=== PATIENT | male | born 2000 | race Hispanic/Latino ===

== ENCOUNTER 2022-01-30 10:37 | Emergency (ER) | payer OTHER ==
[~2022-01-30] VITALS: Ht 172.7 cm; Wt 94.0 kg
[2022-01-30 13:21] VITALS: BP 135/86
== END 2022-01-30 13:22 | disposition home or self-care (01) ==
LOC: M ED 10:37
DX: J02.9 Acute pharyngitis, unspecified (principal); J35.1 Hypertrophy of tonsils

== ENCOUNTER 2022-12-29 07:31 | Day surgery (SDC) | payer OTHER ==
[~2022-12-29] VITALS: Ht 172.7 cm; Wt 90.6 kg
[~2022-12-29 07:31] MED LIST: NS 1,000 ML IV ONE
[2022-12-29] MEDS ORDERED: LIDOCAINE 2% 100MG/5ML SDV (FOR ANES.) As Ordered ONE (08:30)
[2022-12-29] MEDS ORDERED: propofoL 200 MG/20 ML VIAL As Ordered ONE (08:30)
[2022-12-29 09:20] VITALS: TEMP 97.8
[2022-12-29 09:45] VITALS: BP 130/60; O2SAT 100
== END 2022-12-29 09:50 | disposition home or self-care (01) ==
LOC: M OPP 07:31
PROVIDERS: ATTEND Internal Medicine Gastroenterology
DX: K64.8 Other hemorrhoids (principal); K92.1 Melena

== ENCOUNTER 2024-06-27 04:56 | Emergency (ER) | payer OTHER ==
[~2024-06-27] VITALS: Ht 172.7 cm; Wt 97.3 kg
[2024-06-27 04:58] VITALS: O2SAT 100
[2024-06-27] MEDS: predniSONE 20 MG TAB PO ONE (06:29)
[2024-06-27] MEDS: KETOROLAC 60MG 2ML VIAL IM ONE (06:31)
[2024-06-27 08:04] LABS: MONO SCRN NEGATIVE (NEGATIVE)
[2024-06-27] MEDS ORDERED: PRED20TA PO (08:19)
[2024-06-27 08:46] VITALS: BP 133/78; TEMP 98.2
== END 2024-06-27 08:48 | disposition home or self-care (01) ==
LOC: M ED 04:56
DX: J02.9 Acute pharyngitis, unspecified (principal); J35.1 Hypertrophy of tonsils; Z79.52 Long term (current) use of systemic steroids
CPT/HCPCS: 86308; 87430; 87486; 87581; 87633; 87798; 96372; 99283; J1885; J7512

== ENCOUNTER 2024-11-04 10:08 | Day surgery (SDC) | payer OTHER ==
[~2024-11-04] VITALS: Ht 172.7 cm; Wt 107.8 kg
[~2024-11-04 10:08] MED LIST changes: -NS 1,000 ML IV ONE; +PRED20TA PO
[2024-11-04] MEDS ORDERED: LR 1,000 ML IV SCH (10:40)
[2024-11-04] MEDS ORDERED: fentaNYL 100 MCG/2 ML INJECTION As Ordered ONE (10:59)
[2024-11-04] MEDS ORDERED: MIDAZOLAM INJ 2MG/2ML VIAL As Ordered ONE (11:00)
[2024-11-04] MEDS ORDERED: ONDANSETRON 4MG 2ML VIAL As Ordered ONE (11:00)
[2024-11-04] MEDS ORDERED: ROCURONIUM BROMIDE 50MG/5ML VIAL As Ordered ONE (11:00)
[2024-11-04] MEDS ORDERED: ACETAMINOPHEN 1000MG/100ML IV BAG As Ordered ONE (11:00)
[2024-11-04] MEDS ORDERED: propofoL 200 MG/20 ML VIAL As Ordered ONE (11:00)
[2024-11-04] MEDS ORDERED: LIDOCAINE 2% 100MG/5ML SDV (FOR ANES.) As Ordered ONE (11:00)
[2024-11-04] MEDS ORDERED: ESMOLOL INJ 100MG/10ML VIAL As Ordered ONE (12:28)
[2024-11-04] MEDS ORDERED: SUGAMMADEX SODIUM 500 MG/5 ML VIAL (BRIDION) As Ordered ONE (12:34)
[2024-11-04] MEDS: OXYMETAZOLINE 0.05% NASAL SPRAY As Ordered ONE (13:10)
[2024-11-04] MEDS ORDERED: ONDANSETRON 4MG 2ML VIAL IV PRN (13:15)
[2024-11-04] MEDS ORDERED: oxyCODONE 5MG TAB PO PRN (13:15)
[2024-11-04] MEDS ORDERED: MEPERIDINE 25 MG/ML 1ML VIAL IV PRN (13:15)
[2024-11-04] MEDS ORDERED: HYDROMORPHONE HCL 0.5 MG/ 0.5 ML SYRINGE IV PRN (13:15)
[2024-11-04] MEDS ORDERED: fentaNYL 100 MCG/2 ML INJECTION IV PRN (13:15)
[2024-11-04 13:58] VITALS: BP 130/71; TEMP 97.7; O2SAT 96
== END 2024-11-04 14:28 | disposition home or self-care (01) ==
LOC: M SDC 10:08
PROVIDERS: ATTEND Otolaryngology
DX: J35.3 Hypertrophy of tonsils with hypertrophy of adenoids (principal); Z87.891 Personal history of nicotine dependence
CPT/HCPCS: 42821; 88302; J0131; J1100; J1805; J2250; J2405; J3010